=== PATIENT | male | born 1975 | race Caucasian/White ===

== ENCOUNTER 2017-05-22 19:24 | Inpatient (IN) | payer BC, OTHER ==
--- NOTE | 2017-05-22 19:54 | ED ---
General Adult HPI - General Source: patient, family, RN notes reviewed, old records reviewed Mode of arrival: ambulatory Limitations: no limitations <Jong Ugarte - Last Filed: 05/22/17 20:37> <Jessee Griffith - Last Filed: 05/23/17 00:00> - General Chief complaint: Psychiatric Symptoms Stated complaint: Mental Health Suicidal Time Seen by Provider: 05/22/17 19:34 - History of Present Illness Initial comments: This is a 41-year-old male here for evaluation of suicidal thoughts. Patient is recovering drug abuse alcohol abuse patient. Patient comes in with suicidal thoughts, hasn't hospital admission before for suicidal ideation. Patient denies any increased stressors, no drug or alcohol abuse (Jong Ugarte) - Related Data Home Medications Medication Instructions Recorded Confirmed No Known Home Medications [No 05/22/17 05/22/17 Known Home Medications] Allergies Allergy/AdvReac Type Severity Reaction Status Date / Time No Known Allergies Allergy Verified 05/22/17 19:30 Review of Systems ROS Other: All systems not noted in ROS Statement are negative. <Jong Ugarte - Last Filed: 05/22/17 20:37> ROS Other: All systems not noted in ROS Statement are negative. <Jessee Griffith - Last Filed: 05/23/17 00:00> ROS Statement: Those systems with pertinent positive or pertinent negative responses have been documented in the HPI. Past Medical History Past Medical History: No Reported History History of Any Multi-Drug Resistant Organisms: None Reported Past Surgical History: Orthopedic Surgery Additional Past Surgical History / Comment(s): Right hand surgery in 1998 from a lump forming from glass being under skin; Pt. worked at a [employer]. Past Anesthesia/Blood Transfusion Reactions: No Reported Reaction Past Psychological History: ADD/ADHD, Anxiety, Bipolar, Depression Smoking Status: Current every day smoker Past Alcohol Use History: None Reported Past Drug Use History: Marijuana <Jong Ugarte - Last Filed: 05/22/17 20:37> General Exam Limitations: no limitations General appearance: alert, in no apparent distress Head exam: Present: atraumatic, normocephalic, normal inspection Eye exam: Present: normal appearance, PERRL, EOMI. Absent: scleral icterus, conjunctival injection, periorbital swelling ENT exam: Present: normal exam, mucous membranes moist Neck exam: Present: normal inspection. Absent: tenderness, meningismus, lymphadenopathy Respiratory exam: Present: normal lung sounds bilaterally. Absent: respiratory distress, wheezes, rales, rhonchi, stridor Cardiovascular Exam: Present: regular rate, normal rhythm, normal heart sounds. Absent: systolic murmur, diastolic murmur, rubs, gallop, clicks GI/Abdominal exam: Present: soft, normal bowel sounds. Absent: distended, tenderness, guarding, rebound, rigid Extremities exam: Present: normal inspection, full ROM, normal capillary refill. Absent: tenderness, pedal edema, joint swelling, calf tenderness Back exam: Present: normal inspection Neurological exam: Present: alert, oriented X3, CN II-XII intact Psychiatric exam: Present: normal affect, normal mood Skin exam: Present: warm, dry, intact, normal color. Absent: rash <Jong Ugarte - Last Filed: 05/22/17 20:37> Course <Jong Ugarte - Last Filed: 05/22/17 20:37> <Jessee Griffith - Last Filed: 05/23/17 00:00> Vital Signs 05/22/17 19:26 Temperature 98.5 F Pulse Rate 72 Respiratory 18 Rate Blood Pressure 143/80 O2 Sat by Pulse 98 Oximetry - Reevaluation(s) Reevaluation #1: 05/22/17 20:37 Medically clear for psychiatric evaluation (Jong Ugarte) Medical Decision Making <Jong Ugarte - Last Filed: 05/22/17 20:37> <Jessee Griffith - Last Filed: 05/23/17 00:00> - Medical Decision Making The patient was evaluated by the psychiatric service will be admitted for inpatient treatment. I did fill out a clinical certification. (Jessee Griffith) Disposition <Jong Ugarte - Last Filed: 05/22/17 20:37> <Jessee Griffith - Last Filed: 05/23/17 00:00> Clinical Impression: Depression, Suicidal ideation Disposition: TRANSFER TO PSYCH HOSP/UNIT Condition: Stable
[2017-05-23] MEDS ORDERED: LORazepam 1 MG TAB PO PRN ×2 (00:36→12:40)
[2017-05-23] MEDS ORDERED: MAG HYDROX/AL HYDROX/SIMETH 30 ML CUP PO PRN (00:36)
[2017-05-23] MEDS ORDERED: ACETAMINOPHEN TAB 325 MG TAB PO PRN (00:36)
[2017-05-23] MEDS ORDERED: MAGNESIUM HYDROXIDE 2,400 MG/10 ML CUP PO PRN (00:36)
[2017-05-23] MEDS ORDERED: LORazepam 2 MG/ML SYRINGE IM PRN ×2 (00:37→12:40)
[2017-05-23] MEDS ORDERED: OLANZapine ODT 5 MG TAB PO PRN (00:39)
[2017-05-23 01:11] VITALS: BMI 19.6
[2017-05-23] MEDS ORDERED: ZIPRASIDONE 20 MG VIAL IM PRN ×2 (01:37→12:39)
[2017-05-23] MEDS ORDERED: WATER FOR INJECTION, STERILE 10 ML IV ONE (01:44)
[2017-05-23 09:08] LABS: Cholesterol 139 mg/dL (<200); HDL Cholesterol 63 mg/dL (40-60); Triglycerides 59 mg/dL (<150)
[2017-05-23] MEDS ORDERED: OLANZapine 5 MG TAB PO SCH (10:00)
[2017-05-23] MEDS: NICOTINE POLACRILEX 2 MG GUM BUCCAL PRN ×2 (12:46→16:45)
--- NOTE | 2017-05-23 13:22 | HP ---
DATE OF ADMISSION: 05/22/2017 PSYCHIATRIC ADMISSION NOTE DATE OF SERVICE: 05/23/2017 IDENTIFYING DATA: The patient is a 41-year-old male. He lives by himself. He was referred through the emergency room. CHIEF COMPLAINT: The patient had made statements that he was suicidal and had a plan of using his gun where he would tie a string to set off the trigger to kill himself. He has substance use issues. He was admitted on petition for involuntary hospitalization. HISTORY OF PRESENTING ILLNESS: The patient has had one prior psychiatric hospitalization at this facility on December 22, 2014. At that time, he was admitted due to a petition completed by his mother. He was not sleeping, constantly pacing, had mood fluctuations from anger to crying, was not eating, thinking people were out to get him. He had racing thoughts, increased energy, grandiose delusions and hallucinations. He was diagnosed with bipolar disorder. He had just been released from a psychiatric hospital in [place] 2 weeks prior to that admission. He stated he flushed his medicines down the toilet. Today, the patient reports that since that hospitalization he has not been on psychotropic medications. He apparently was on Abilify Maintena for some period of time, though he was vague about specifics. Over the last several years, he has not been under any mental health care. He does have a significant substance use history including alcohol. He stopped drinking altogether in 2010. He states that he has had his medical marijuana card for the last few years. He had renewed his card once, which goes for a two-year period of time. He elected on this past Saturday to stop smoking marijuana all together. He believed that it was not helping him in terms of managing his daily life and dealing with stress issues. He also had past abuse of Adderall that was prescribed to him. He started having visual hallucinations with that. He said that in his family growing up his father had alcohol problems and he did not want to continue in that direction himself. He has 2 children, ages 17 and 13 for whom he has joint custody. He says he wants to be a good father and support his children as one important motivator for stopping smoking marijuana. He has had increased irritability. Since he stopped smoking marijuana he says that he was very distressed over some issues relating to child support. He got support papers and realized he needed to find health insurance for his children that he was having trouble trying to manage between people who were contacting him for insurance plans. He believed that people were trying to scam him. He said he did not know which way to turn. He got increasingly distressed which ended up getting him into his situation of making statements about suicide. When I interviewed him today, he says he does not have an intention of hurting himself or killing himself. He acknowledges that he probably has irritability relating to stopping smoking marijuana. His sleep has been fairly good. He does note some paranoid thinking and questions motivations of others. He has fair energy. He denies any symptoms of thought disorder. There is some suggestion he may have some PTSD symptoms from childhood issues, though he does not clearly identify specific abuse situations. He does note that he can over reactions to things where he does not know where the feelings come from. He has some anxiety that does not clearly identify panic symptoms. It is noted that in 2014 when the patient was admitted, there were likely significant substance use issues whether he has underlying bipolar disorder remains to be seen. It is noteworthy that when I reviewed with the patient how he had been functioning over the last few months prior to his current situation, he noted that he maintained a good mood. He did not have significant anxiety or panic symptoms. He was not having problems with over suspiciousness or paranoia. On the other hand, in a social work contact with the patient's mother, she indicated he has been having problems perhaps over the last several months, at least. She was concerned that after his 2014 admission, he stopped taking his prescribed medications and declined in his function. She suggested that symptoms of paranoid thinking became fairly prominent. It is noted that after my initial; interview with the patient, when he was offered the medication ordered, he became quite reluctant to accept. He wanted to see the wrapper it came in. He questioned the indication, and suggested that people here were threatening him in various ways, including around the idea of taking medications. He is admitted for further evaluation. SUBSTANCE USE HISTORY: As above. PAST MEDICAL HISTORY: Patient denies any current or chronic general health complaints. REVIEW OF SYSTEMS: Unremarkable. Further medical history and review of systems as per medical consultation. FAMILY AND SOCIAL HISTORY: The patient lives on his own. He has split custody of his 2 children, and has them every other week. 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 MENTAL STATUS EXAM: Patient was casually dressed and cooperative. Eye contact was good. Psychomotor activity a little restless. Speech was clear. He answered questions with appropriate responses. He was spontaneous and interactive. His affect was blunted. He had a withdrawn manner. His mood depressed. He was cooperative. He was somewhat anxious, though he was thoughtful and offered some good insights. He did not appear to be significantly distressed, initially. Further contact with the patient revealed him to be quite paranoid, believing people were watching him and threatening him in various ways. He made comments that when he is in the store and sees names on Coke bottles, he believes there are messages about things in his past life. He presented in a quite suspicious, apprehensive way. On cognitive exam, he was oriented x3 and alert. Recent and remote memory was intact. Attention and concentration were fair. He remembered 2 out of 3 objects in 4 minutes. He could spell world forward and backwards. He had adequate calculations. Attention and focus were good. Insight was good. Judgment generally appropriate. Fund of knowledge average. Intellectual level average. PHYSICAL EXAM: As per medical consultation. DIAGNOSTIC STUDIES: CBC was remarkable for a hemoglobin of 13.0 with an MCV of 103. Comprehensive metabolic profile was remarkable for total protein of 5.9. Creatinine 1.23. Glucose 87. Lipid levels normal. TSH 1.9. Urinalysis unremarkable. Urine drug screen positive for THC. ASSESSMENT: This 41-year-old male is diagnosed with substance withdrawal from marijuana. It is not clear that he has an ongoing psychiatric disorder. Beyond that, he was doing well up until just this week. He was not having issues with anxiety, depression or thought disorder whether or not withdrawal resolves without persistence of any mood or anxiety condition remains to be seen though at this point that would be the focus of treatment. He does appear to have long-term family dynamic and emotional issues that probably play into possible posttraumatic stress disorder condition. Strengths include that he is consistent in his work, that he has motivation for stabilizing his life situation and that he appears to be a good support for his children. Weakness includes some limited insight in regards to substance use issues even though he seems to have made a step forward in that regard. DIAGNOSES: 1. Marijuana dependence with active withdrawal. 2. Posttraumatic stress disorder. 3. Possible bipolar affective disorder, possibly drug induced. RECOMMENDATIONS: Patient will be admitted for comprehensive medical, psychiatric and psychosocial evaluation. We will make efforts to engage the patient in individual and group therapeutic activities. I will start the patient on Zyprexa 5 mg twice a day. The aim of Zyprexa is to help reduce physiologic stress response as it relates to substance withdrawal. He has had some benefit in the past from long-acting injectable, though at that time he also was actively using some abusive substances. The specifics of that are unclear. We will help the patient work on planning some discharge issues, which includes sorting out some important family business including health insurance. Patient would be a good candidate for outpatient psychotherapy. We will focus on stabilization and discharge planning. SIDNEY
--- NOTE | 2017-05-23 15:11 | P.CONS ---
History of Present Illness - Reason for Consult Consult date: 05/23/17 - History of Present Illness This is a 41-year-old male who presented to the emergency department with suicidal thoughts. He has a history of severe depression, bipolar, ADD, GERD, and substance use. He does have a history of being institutionalized for mental health issues in the past. Patient reports he was on Abilify for his bipolar disorder in the past but had stopped due to a mixup at [facility] where he was receiving treatment for his bipolar disorder. Patient reports he recently stopped smoking marijuana and feels this is why he was having suicidal ideation. Patient reports he was having suicidal thoughts last night but none currently. He states he has not had any alcohol since November 2011 and denies any other substance abuse. Patient does work at a [employer] , has 2 children and is . Review of Systems Constitutional: Denies anorexia, Denies chills, Denies fatigue, Denies fever Eyes: bilateral blurred vision, bilateral irritation, bilateral pain Ears: deny: decreased hearing, tinnitus Ears, nose, mouth and throat: Denies headache, Denies hoarseness, Denies nasal congestion, Denies nose pain Cardiovascular: Denies chest pain, Denies dyspnea on exertion, Denies edema, Denies lightheadedness, Denies palpitations, Denies rapid heart beat, Denies shortness of breath, Denies syncope Respiratory: Denies cough, Denies pain, Denies wheezing Gastrointestinal: Denies abdominal pain, Denies constipation, Denies indigestion , Denies nausea, Denies vomiting Genitourinary: Denies flank pain, Denies hematuria, Denies incontinence, Denies urinary frequency Musculoskeletal: Denies limitation of motion, Denies morning stiffness, Denies muscle cramps, Denies muscle weakness, Denies neck pain Musculoskeletal: absent: ankle pain, ankle stiffness, hip pain, knee pain, shoulder pain, wrist pain Integumentary: Denies color changes, Denies darkening of skin, Denies lesions, Denies wounds Neurological: Denies change in speech, Denies confusion, Denies gait dysfunction , Denies head injury, Denies headaches, Denies lack of coordination, Denies numbness, Denies seizures, Denies sensory deficit, Denies syncope Psychiatric: Reports anxiety, Reports anxiety attacks, Reports change in sleep habits, Reports depression, Reports difficulty concentrating, Reports irritability, Reports mood swings, Denies change in appetite, Denies hallucinations, Denies memory loss, Denies paranoia, Denies suicidal ideation Endocrine: Denies cold intolerance, Denies fatigue, Denies nocturia, Denies weight change Hematologic/Lymphatic: Denies easy bleeding, Denies lymphadenopathy, Denies lymphedema Allergic/Immunologic: Denies allergic rhinitis, Denies angioedema, Denies wheezing Past Medical History Past Medical History: No Reported History History of Any Multi-Drug Resistant Organisms: None Reported Past Surgical History: Orthopedic Surgery Additional Past Surgical History / Comment(s): Right hand surgery in 1998 from a lump forming from glass being under skin; Pt. worked at a [employer]. Past Anesthesia/Blood Transfusion Reactions: No Reported Reaction Smoking Status: Current every day smoker - Past Family History Mother History Unknown: Yes Additional Family Medical History / Comment(s): Mother is on medication for depression Medications and Allergies Home Medications Medication Instructions Recorded Confirmed Type No Known Home Medications [No 05/22/17 05/22/17 History Known Home Medications] Allergies Allergy/AdvReac Type Severity Reaction Status Date / Time No Known Allergies Allergy Verified 05/22/17 19:30 Physical Exam Vitals: Vital Signs Temp Pulse Pulse Resp BP BP Pulse Ox 05/23/17 02:41 97.8 F 66 16 148/84 05/23/17 01:02 97.8 F 66 16 148/84 99 05/23/17 00:34 98 F 69 18 139/91 99 05/22/17 19:26 98.5 F 72 18 143/80 98 Intake and Output 05/22/17 05/23/17 05/23/17 22:59 06:59 14:59 Other: Weight 60.328 kg 56.9 kg - Constitutional General appearance: cooperative, no acute distress - EENT Eyes: PERRLA ENT: hearing grossly normal Ears: bilateral: normal - Neck Neck: no lymphadenopathy, normal ROM, no thyromegaly Carotids: bilateral: upstroke normal, bruit absent Thyroid: bilateral: normal size, negative: enlarged, nodule - Respiratory Respiratory: bilateral: CTA, negative: dullness, rhonchi, wheezing - Cardiovascular Rhythm: regular Heart sounds: normal: S1, S2 Abnormal Heart Sounds: no systolic murmur, no S3 Gallop, no S4 Gallop - Gastrointestinal General gastrointestinal: no distended, normal bowel sounds, no organomegaly, soft, no splenomegaly, no tenderness - Integumentary Integumentary: normal, no rash - Neurologic Neurologic: CNII-XII intact - Musculoskeletal Musculoskeletal: gait normal, no generalized weakness, strength equal bilaterally - Psychiatric Psychiatric: A&O x's 3, appropriate affect Results Labs: Abnormal Lab Results - Last 24 Hours (Table) 05/22/17 05/23/17 Range/Units 23:59 08:30 HDL Cholesterol 63 H (40-60) mg/dL U Marijuana (THC) Screen Detected H (NotDetected) Assessment and Plan Plan: 1 bipolar disorder and severe depression: Patient admitted to the psych unit medication and counseling will be done. 2 anxiety: Has been on medical management. 3 GERD: We'll continue to monitor. Maalox as needed. 4 substance-abuse: Patient to be seen by psych service 5 ADD: Patient currently not on any home medications, continue to monitor 6 tobacco use: Nicotine replacement ordered. The above impression and plan of care have been discussed and directed by signing physician. Kendra Meyers nurse practitioner acting as scribe for signing physician.
[2017-05-23] MEDS ORDERED: diphenhydrAMINE 50 MG/ML 1 ML VIAL IM PRN (15:29)
[2017-05-24] MEDS: NICOTINE POLACRILEX 2 MG GUM BUCCAL PRN ×2 (08:23→10:59)
[2017-05-24] MEDS ORDERED: ARIPiprazole 15 MG TAB PO SCH (09:00)
[2017-05-24 09:28] LABS: Basophils % (A) 0 %; CHCM 33.7; Eosinophils % (A) 0 %; HCT 50.4 % (39.0-53.0); HDW 1.92; HGB 16.3 gm/dL (13.0-17.5); Luc # (Auto) 0.14; Luc % (Auto) 1; Lymphocytes # (A) 2.2 k/uL (1.0-4.8); Lymphocytes % (A) 17 %; MCH 33.7 pg (25.0-35.0); MCHC 32.4 g/dL (31.0-37.0); MCV 104.3 fL (80.0-100.0); Macrocytosis Slight; Mean Platelet Volume 8.1; Monocytes # (A) 0.5 k/uL (0-1.0); Monocytes % (A) 4 %; Neutrophils # (A) 10.2 k/uL (1.3-7.7); Neutrophils % (A) 78 %; RBC 4.84 m/uL (4.30-5.90); RDW 12.3 % (11.5-15.5); WBC 13.1 k/uL (3.8-10.6); WBC (Perox) 12.46
[2017-05-24 10:21] LABS: ALT 39 U/L (21-72); AST 31 U/L (17-59); Alkaline Phosphatase 67 U/L (38-126); Anion Gap 13 mmol/L; Blood Urea Nitrogen 14 mg/dL (9-20); Calcium 9.9 mg/dL (8.4-10.2); Carbon Dioxide 26 mmol/L (22-30); Chloride 103 mmol/L (98-107); Glucose 131 mg/dL (74-99); Non-African American GFR(MDRD) >60 (>60 ml/min/1.73 sqM); Potassium 4.2 mmol/L (3.5-5.1); Sodium 142 mmol/L (137-145); Total Bilirubin 0.8 mg/dL (0.2-1.3); Total Protein 6.8 g/dL (6.3-8.2)
--- NOTE | 2017-05-24 16:27 | PN ---
DATE OF SERVICE: 05/24/2017 CHIEF COMPLAINT: The patient had made statements that he was suicidal and had a plan of using his gun where he would tie a string to set off the trigger to kill himself. He had substance use issues. He was admitted on petition for involuntary hospitalization. INTERVAL HISTORY: Patient has been doing fair. He seems to be showing some progress. He had a quiet evening last night. He slept fairly well. He has been up and about today. He attends groups. He seems to do fairly well in the groups though he acknowledges it is difficult for him to open up and share in that setting. He says he has tried to address some of his issues including past problems. He has had with substance abuse. He declined to take Zyprexa, though has been comfortable with starting Abilify. He has had no problems with the initial dose Abilify. Unfortunately he does not have insurance that will cover medications. He will not be able to afford the Abilify. We discussed this issue and he is willing to get started on an alternative. He seems to be doing a little bit better with less apprehension and suspiciousness. He has been cooperative. He seems to be doing a little better in his mood. He has been talking a little bit more. He has not had change in his general health. He tolerates his psychotropic medications. MENTAL STATUS: Patient gave good eye contact. Psychomotor activity was a little slow. Speech was somewhat monotone. He answered questions with direct responses. His affect was a little blunted. His mood quiet. He did not appear to be significantly distressed. ASSESSMENT: I will continue the current diagnosis and treatment plan. I will switch the patient from Abilify to Risperdal. I will start 6 mg a day. We will continue to focus on stabilization and discharge planning. I discussed with the patient that we would look to discharge him early in the week. SIDNEY
[2017-05-24] MEDS ORDERED: risperiDONE 2 MG TAB PO ONE (18:19)
[2017-05-24] MEDS: risperiDONE 2 MG TAB PO SCH (18:25)
--- NOTE | 2017-05-25 08:57 | P.PN ---
Progress Note - Text Interval history: The patient is found in the hallway he follows me to an interview room. The psychiatric evaluation and progress note were reviewed. The patient was started on Risperdal 6 mg at bedtime last evening. The patient states that he feels the medicine" coming on". He has no specific complaints about it at this point. He was going to be started on Abilify but that was not utilized due to coverage issues. The patient states that he slept last night appetite was better this morning. He is making an effort to attend groups. He is hoping the medication will help stabilize him. He reports future oriented thinking in terms of goals he needs to accomplish upon discharge. Mental status exam: The patient is a thin male appearing older than his stated age. He has a disheveled appearance he is dressed in his own clothing. Eye contact is appropriate he's pleasant cooperative. He maintains a bland affect. He reports his mood is "okay". He is reporting no acute suicidal or homicidal ideation intent or plan. Thought process was relatively linear he can be circumstantial at times. He was not tangential and demonstrated no loose associations or flight of ideas. He demonstrates no verbal or physical aggressiveness. No abnormal involuntary movements observed. Insight and judgment improving. He is oriented to person place and date. He is endorsing no auditory or visual hallucinations he is endorsing no specific delusions. Plan: The patient will continue on his current medication we will monitor for side effects. Vital signs reviewed. He is encouraged to continue participating in the milieu. We will monitor him for safety.
[2017-05-25] MEDS: NICOTINE POLACRILEX 2 MG GUM BUCCAL PRN ×2 (10:57→18:09)
[2017-05-25] MEDS: risperiDONE 2 MG TAB PO SCH (20:16)
[2017-05-26] MEDS: NICOTINE POLACRILEX 2 MG GUM BUCCAL PRN (08:21)
--- NOTE | 2017-05-26 09:08 | P.PN ---
Progress Note - Text Interval history: The patient is found in the hallway he follows me to an interview room. He reports that his mood is "okay". He feels that he is slowly adjusting to the Risperdal. Yesterday he states he had a bit of a heavy feeling and he notes that today his heart rate is quite high. He is endorsing no dystonic reactions no blurred vision no double vision no jaw stiffness etc. He has been participating in the [employer] He has been eating. He feels overall things are beginning to stabilize. We discussed the Risperdal and his current dose and discussed reducing the dose to minimize risk of side effects. Mental status exam: The patient is a thin disheveled male he seated calmly he's pleasant cooperative he maintains a bland affect. He reports his mood is "okay". He is reporting no hopelessness thinking no suicidal or homicidal ideation intent or plan. He reports no auditory or visual hallucinations he is endorsing no specific delusions as we reviewed several types. He does not appear hypomanic or manic. He continues to be oriented to person place and date. No abnormal involuntary movements observed. He is able to sit calmly in the chair for the duration of the session. He demonstrates no verbal or physical aggressiveness. Thought process remains linear he demonstrates no tangential thinking loose associations or flight of ideas. Plan: The patient will continue on the Risperdal we will reduce the dose to 4 mg at bedtime. We will monitor her vitals specifically heart rate. He is encouraged to continue participating in the [employer] we will monitor him for safety. He is interested in going on an injectable form of the medication we will need to see if this is covered by his insurance or outpatient provider. We will repeat another set of vitals.
[2017-05-26] MEDS: risperiDONE 2 MG TAB PO SCH (20:16)
[2017-05-27] MEDS: NICOTINE POLACRILEX 2 MG GUM BUCCAL PRN (12:13)
[2017-05-27] MEDS: risperiDONE 2 MG TAB PO SCH (20:30)
--- NOTE | 2017-05-27 22:55 | PN ---
DATE OF SERVICE: 05/27/2017 CHIEF COMPLAINT: The patient had made statements that he was suicidal and had a plan of using his gun where he would tie a string to set off the trigger to kill himself. He had substance use issues. He was admitted on petition for involuntary hospitalization. INTERVAL HISTORY: Patient has been doing fairly well overall. He said that he did well through the weekend. It is noted that Saturday evening his mother called around 6:30, stating that the patient had called her and made a statement that he was going to , that his would be on Saturday. The patient himself denied having made these statements and said he was doing fairly well. Apparently the mother visited over the weekend and also said that in her assessment, that he was continuing to be quite paranoid and also that he had stated he was hiding his medication under his denture and then throwing the medication away. The patient has been attending groups. He has been appropriate in groups. He was able to talk about his addiction and the impact of his substance use on family functioning. He also was able to talk about issues of his poor self-esteem. He has shown some paranoid thinking where he wonders what other people are thinking about him and what they are saying about him, though he does respond to staff reassurance. He was able to share those feelings with staff. He acknowledges that some of his paranoid feelings have been lessening since he has been on the medication. He apparently had some complaint of nausea over the weekend and his Risperdal was reduced from 6 mg a day to 4 mg a day without difficulty. He has not had other change in his general health. He tolerates his psychotropic medications. MENTAL STATUS: Patient gave good eye contact. Psychomotor activity was a little restless. His speech was clear. He was spontaneous and interactive. His affect was a little constricted. His mood was quiet. He did not appear to be significantly distressed. ASSESSMENT: I will continue the current diagnosis and treatment plan. I will continue psychotropic medications the same. It is noted that the patient clarified that the only time that he cheeked his medication was the first doses though of Zyprexa that he received. He noted that he acknowledged that right away. He feels that his current medication is helping. His mood seems to be improving. He has a better outlook. He seems to have some good insight about his situation. We will continue to focus on stabilization and discharge planning.
[2017-05-28 06:38] VITALS: BP 125/83; PULSE 89; RESP 16; TEMP 97.8
[2017-05-28] MEDS: NICOTINE POLACRILEX 2 MG GUM BUCCAL PRN (10:45)
== END 2017-05-28 12:12 | disposition home or self-care (01) | DRG 897 ==
LOC: EC 19:24 → 3MHU 23:57
PROVIDERS: ADMIT Psychiatry & Neurology Psychiatry; ATTEND Psychiatry & Neurology Psychiatry
DX: F12.288 Cannabis dependence with other cannabis-induced disorder (principal); R45.851 Suicidal ideations; F17.200 Nicotine dependence, unspecified, uncomplicated; F43.10 Post-traumatic stress disorder, unspecified; F90.9 Attention-deficit hyperactivity disorder, unspecified type; K21.9 Gastro-esophageal reflux disease without esophagitis; Z81.8 Family history of other mental and behavioral disorders
CPT/HCPCS: 80053; 80061; 80306; 82075; 82306; 84443; 85025; 99285

== ENCOUNTER 2020-11-29 09:10 | Inpatient (IN) | payer MEDICAID, OTHER ==
--- NOTE | 2020-11-29 10:05 | ED ---
General Adult HPI - General Chief complaint: Psychiatric Symptoms Stated complaint: change in mental status Time Seen by Provider: 11/29/20 09:19 Source: patient, family, RN notes reviewed, old records reviewed Mode of arrival: ambulatory Limitations: no limitations - History of Present Illness Initial comments: 45-year-old male presenting for mental health evaluation. Patient was previously seen by [facility] mental health and was on injectable medication. Secondary to insurance reasons he's been off his medication. He's been paranoid bleeding at sabotage him. He denies suicidal or homicidal ideation. He is accompanied by his father. No physical complaints. - Related Data Home Medications Medication Instructions Recorded Confirmed No Known Home Medications 11/29/20 11/29/20 Allergies Allergy/AdvReac Type Severity Reaction Status Date / Time No Known Allergies Allergy Verified 11/29/20 09:50 Review of Systems ROS Statement: Those systems with pertinent positive or pertinent negative responses have been documented in the HPI. ROS Other: All systems not noted in ROS Statement are negative. Past Medical History Past Medical History: No Reported History History of Any Multi-Drug Resistant Organisms: None Reported Past Surgical History: Orthopedic Surgery Additional Past Surgical History / Comment(s): Right hand surgery in 1998 from a lump forming from glass being under skin; Pt. worked at a [employer]. Past Anesthesia/Blood Transfusion Reactions: No Reported Reaction Past Psychological History: ADD/ADHD, Anxiety, Bipolar, Depression Smoking Status: Current every day smoker Past Alcohol Use History: None Reported Past Drug Use History: Marijuana - Past Family History Mother History Unknown: Yes Additional Family Medical History / Comment(s): Mother is on medication for depression General Exam Limitations: no limitations General appearance: alert, in no apparent distress Head exam: Present: atraumatic, normocephalic Eye exam: Present: normal appearance, PERRL ENT exam: Present: normal exam Neck exam: Present: normal inspection. Absent: tenderness, meningismus Respiratory exam: Present: normal lung sounds bilaterally. Absent: respiratory distress, wheezes Cardiovascular Exam: Present: regular rate, normal rhythm GI/Abdominal exam: Present: soft. Absent: distended, tenderness Neurological exam: Present: alert, oriented X3, CN II-XII intact. Absent: motor sensory deficit Psychiatric exam: Present: flat affect. Absent: suicidal ideation Skin exam: Present: warm, dry, intact. Absent: cyanosis, diaphoretic Course Vital Signs 11/29/20 09:13 Temperature 98.8 F Pulse Rate 86 Respiratory 18 Rate Blood Pressure 170/96 O2 Sat by Pulse 99 Oximetry Medical Decision Making - Medical Decision Making Patient has been evaluated by EPS, and felt to require inpatient psychiatric evaluation and treatment. He will be admitted to this institution. - Lab Data Lab Results 11/29/20 Range/Units 09:53 Urine Opiates Screen Not Detected (NotDetected) Ur Oxycodone Screen Not Detected (NotDetected) Urine Methadone Screen Not Detected (NotDetected) Ur Propoxyphene Screen Not Detected (NotDetected) Ur Barbiturates Screen Not Detected (NotDetected) U Tricyclic Antidepress Not Detected (NotDetected) Ur Phencyclidine Scrn Not Detected (NotDetected) Ur Amphetamines Screen Not Detected (NotDetected) U Methamphetamines Scrn Not Detected (NotDetected) U Benzodiazepines Scrn Not Detected (NotDetected) Urine Cocaine Screen Not Detected (NotDetected) U Marijuana (THC) Screen Detected H (NotDetected) Disposition Clinical Impression: Depression, Bipolar disorder, Delusional disorder Disposition: ADMITTED IP TO THIS [facility] Condition: Stable Is patient prescribed a controlled substance at d/c from ED?: No Referrals: None,Stated [Primary Care Provider] - 1-2 days Decision to Admit Reason: Admit from EC Decision Date: 11/29/20 Decision Time: 13:43
[2020-11-29 10:29] LABS: Amphetamine Screen,Urine Not Detected (NotDetected); Barbiturate Screen,Urine Not Detected (NotDetected); Benzodiazepines Screen,Urine Not Detected (NotDetected); Cocaine Screen,Urine Not Detected (NotDetected); Methadone Screen, Urine Not Detected (NotDetected); Opiate Screen,Urine Not Detected (NotDetected); Oxycodone Screen, Urine Not Detected (NotDetected); Phencyclidine Screen,Urine Not Detected (NotDetected); Tricyclic Antidepressant,Urine Not Detected (NotDetected); Urn Cannabinoid Scrn Detected (NotDetected)
[2020-11-29] MEDS ORDERED: LORazepam 1 MG TAB PO STA (14:19)
[2020-11-29] MEDS ORDERED: MAG HYDROX/AL HYDROX/SIMETH 30 ML CUP PO PRN (15:30)
[2020-11-29] MEDS ORDERED: LORazepam 1 MG TAB PO PRN (15:30)
[2020-11-29] MEDS ORDERED: ACETAMINOPHEN TAB 325 MG TAB PO PRN (15:30)
[2020-11-29] MEDS ORDERED: MAGNESIUM HYDROXIDE 2,400 MG/10 ML CUP PO PRN (15:30)
[2020-11-29] MEDS ORDERED: haloperidoL 5 MG TAB PO PRN (15:34)
[2020-11-29] MEDS ORDERED: LORazepam 2 MG/ML INJ IM PRN (15:34)
[2020-11-29] MEDS ORDERED: HALOPERIDOL LACTATE 5 MG/ML 1 ML VIAL IM PRN (15:34)
[2020-11-29 16:30] VITALS: RESP 16
[2020-11-29 17:29] LABS: Amorphous Sediment,Urine Occasional /hpf; Appearance,Urine Turbid (Clear); Bacteria,Urine Few /hpf; Bilirubin,Urine Negative (Negative); Blood,Urine Negative (Negative); Color,Urine Light Brown; Glucose,Urine (UA) Negative (Negative); Ketones,Urine Trace (Negative); Leukocyte Esterase,Urine Negative (Negative); Mucus,Urine Few /hpf; Nitrite,Urine Negative (Negative); PH, Urine 5.5 (5.0-8.0); Protein,Urine Trace (Negative)
[2020-11-29] MEDS: NICOTINE 14MG/24HR PATCH TRANSDERM SCH (19:05)
--- NOTE | 2020-11-30 00:34 | P.MDCNMH ---
History of Present Illness H&P Date: 11/29/20 Chief Complaint: medical evaluation 45 year old malel with paranoid delusion, medical non compliance patient comes in for mental health evaluation due to paranoid delusions, he has been non compliant with his medication, denies any suicidal or homicidal ideation. patient denies any fever, chills, nausea , vomiting, URI symptoms, GI symptoms, urnary changes. patient admits to smoking cigarettes and marijuana , but denies any heavy alcohol use Review of Systems Pertinent positives as noted in HPI. All other systems were reviewed and are negative Past Medical History Past Medical History: No Reported History History of Any Multi-Drug Resistant Organisms: None Reported Past Surgical History: Orthopedic Surgery Additional Past Surgical History / Comment(s): Right hand surgery in 1998 from a lump forming from glass being under skin; Pt. worked at a [employer]. Past Anesthesia/Blood Transfusion Reactions: No Reported Reaction Past Psychological History: ADD/ADHD, Anxiety, Bipolar, Depression Smoking Status: Current every day smoker Past Alcohol Use History: None Reported Additional Past Alcohol Use History / Comment(s): Patient states hasnt drank alcohol in 6 years Past Drug Use History: Marijuana Additional Drug Use History / Comment(s): Pt. has a medical marijuana card. Hx. of using cocaine and LSD 8yrs. ago. - Past Family History Mother History Unknown: Yes Additional Family Medical History / Comment(s): Mother is on medication for depression Medications and Allergies Home Medications Medication Instructions Recorded Confirmed Type No Known Home Medications 11/29/20 11/29/20 History Allergies Allergy/AdvReac Type Severity Reaction Status Date / Time bee venom protein (honey bee) AdvReac Itching Verified 11/29/20 16:34 Physical Exam Vitals: Vital Signs Temp Pulse Pulse Resp BP BP Pulse Ox 11/29/20 16:21 98.4 F 76 16 161/99 97 11/29/20 15:40 98.4 F 76 16 161/99 11/29/20 14:00 98.2 F 91 18 162/98 95 11/29/20 09:13 98.8 F 86 18 170/96 99 Intake and Output 11/29/20 11/29/20 11/30/20 14:59 22:59 06:59 Other: Weight 61.235 kg 59.4 kg Constitutional: No acute distress, conversant, pleasant Eyes: Anicteric sclerae, moist conjunctiva, Pupils equal round reactive to light ENMT: NC/AT Oropharynx clear, no erythema, or exudates Neck: Supple, FROM, no masses, or JVD No carotid bruits No thyromegaly Lungs: Clear to auscultation Clear to percussion Normal respiratory effort, no accessory muscle use Cardiovascular: Heart regular in rate and rhythm, No murmurs, gallops, or rubs No peripheral edema Abdominal: Soft Nontender, no guarding, rebound or rigidity Abdomen moving with respiration Normoactive bowel sounds No hepatomegaly, No splenomegaly No palpable mass No abdominal wall hernia noted Skin: Normal temperature, tone, texture, turgor No induration No subcutaneous nodules No rash, lesions No ulcers Extremities: No digital cyanosis No clubbing Pedal pulses intact and symmetrical Radial pulses intact and symmetrical No calf tenderness Psychiatric: Alert and oriented to person, place and time Neuro Muscles Strength 5/5 in all 4 extremities Sensation to light touch grossly present throughout Cranial nerves II-XII grossly intact No focal sensory deficits Lymphatics: no palpable cervical or supraclavicular , or inguinal lymph nodes Cranial Nerve Examination - Cranial Nerves Cranial Nerve II- Optic: Intact Cranial Nerve III- Oculomotor: Intact Cranial Nerve IV- Trochlear: Intact Cranial Nerve V- Trigeminal: Intact Cranial Nerve - Abducens: Intact Cranial Nerve VII- Facial: Intact Cranial Nerve VIII- Auditory: Intact Cranial Nerve IX- Glossopharyngeal: Intact Cranial Nerve X- Vagus: Intact Cranial Nerve XI- Accessory: Intact Cranial Nerve XII- Hypoglossal: Intact Results Labs: Abnormal Lab Results - Last 24 Hours (Table) 11/29/20 11/29/20 Range/Units 09:30 09:53 Urine Protein Trace H (Negative) Urine Ketones Trace H (Negative) Amorphous Sediment Occasional H (None) /hpf Urine Bacteria Few H (None) /hpf Urine Mucus Few H (None) /hpf U Marijuana (THC) Screen Detected H (NotDetected) Assessment and Plan Assessment: paranoid delusions medical non compliance management per psych tobacco smoking nicotine replacement therapy follow up labs Thank you for allowing us to participate in the care of this patient. We will follow peripherally. Do not hesitate to contact us with questions. Someone can be reached from the [facility] hospitalist group at all hours of the day at [phone].
[2020-11-30 08:54] LABS: Basophils % (A) 0 %; Eosinophils # (A) 0.1 k/uL (0-0.7); Eosinophils % (A) 1 %; HCT 51.6 % (39.0-53.0); HGB 16.8 gm/dL (13.0-17.5); Lymphocytes # (A) 2.7 k/uL (1.0-4.8); Lymphocytes % (A) 29 %; MCH 33.4 pg (25.0-35.0); MCHC 32.6 g/dL (31.0-37.0); MCV 102.5 fL (80.0-100.0); Macrocytosis Slight; Mean Platelet Volume 8.1; Monocytes # (A) 0.6 k/uL (0-1.0); Monocytes % (A) 7 %; Neutrophils # (A) 5.6 k/uL (1.3-7.7); Neutrophils % (A) 61 %; Platelet Count 225 k/uL (150-450); RBC 5.03 m/uL (4.30-5.90); RDW 12.4 % (11.5-15.5); WBC 9.1 k/uL (3.8-10.6)
[2020-11-30 09:00] LABS: ALT 15 U/L (4-49); AST 29 U/L (17-59); African American GFR (CKD) >90 (>60 ml/min/1.73 sqM); Albumin 4.5 g/dL (3.5-5.0); Alkaline Phosphatase 63 U/L (38-126); Anion Gap 6 mmol/L; Blood Urea Nitrogen 13 mg/dL (9-20); Calcium 9.7 mg/dL (8.4-10.2); Carbon Dioxide 27 mmol/L (22-30); Chloride 104 mmol/L (98-107); Cholesterol 147 mg/dL (<200); Glucose 148 mg/dL (74-99); HDL Cholesterol 58 mg/dL (40-60); LDL Cholesterol,Calculated 76 mg/dL (0-99); Non-African American GFR(CKD) >90 (>60 ml/min/1.73 sqM); Potassium 4.2 mmol/L (3.5-5.1); Sodium 137 mmol/L (137-145); Total Bilirubin 1.4 mg/dL (0.2-1.3); Total Protein 7.2 g/dL (6.3-8.2); Triglycerides 64 mg/dL (<150)
[2020-11-30] MEDS ORDERED: ARIPiprazole 10 MG TAB PO SCH (09:00)
[2020-11-30] MEDS: NICOTINE 14MG/24HR PATCH TRANSDERM SCH (09:10)
[2020-11-30] MEDS: ARIPiprazole 5 MG TAB PO SCH (09:11)
[2020-11-30] MEDS: NICOTINE POLACRILEX 2 MG GUM BUCCAL PRN (10:01)
--- NOTE | 2020-11-30 11:26 | P.HP ---
Psychiatric H&P - . H&P Date: 11/30/20 History & Physical: IDENTIFYING DATA: His 45-year-old male admitted to psychiatric unit voluntarily with recent history of increasing paranoia, insomnia, irritability and restlessness. HISTORY OF PRESENT ILLNESS: I reviewed the medical record, interviewed the patient and spoke with his live-in girlfriend Nida. He was initially reluctant to speak with me insisting that I call his girlfriend and have her present on the telephone during the interview. He was apprehensive but eventually agreed to speak with me privately before he called his girlfriend. He requested to "get back on" Abilify injections. He stated that when he was receiving the injection he was doing well. He alleged that he stopped injections because his insurance would not cover the cost. He had a difficult time explaining the concerns that brought him to the hospital. Apparently, the hospitalization was at the behest of his father and his girlfriend. He talked about being suspicious of people, having restless sleep, feeling anxious and having a more difficult time controlling his anger. He perseverated considerably about his current job. He is worried that if she does not receive some treatment he may lose the job that is held for 2 years. He also is concerned that if he were hired full-time (he's been working for [employer] for the last 2 years) he would be required to provide a urine sample for another drug test and may fail because he continues to smoke marijuana. His girlfriend, Nida, was concerned about his restlessness, irritability and paranoia. She complained that that he has difficult time controlling his anger. He cannot sleep and paces the house. She talked about him leaving strangers are looking at him and talking about him. She perseverated on him needing "something for anxiety." During the telephone portion of interview he revealed that in the past he had taken and possibly abused Adderall. His history of use difficult to clarify but that appeared to attend when he was last admitted to this unit. (There is no record of controlled substance prescriptions on [facility]) He denied persistent feelings depression or thoughts of or suicide. He described feeling tense and nervous and apprehensive as a result his concern over work and his relationship with his girlfriend. He denied experiencing panic attacks. He denied obsessions or compulsions. He alleges that he has been abstinent from alcohol since 2010. He only smokes marijuana. His UDS was positive only for cannabinoids. His girlfriend described what appears to be ideas reference where he feels that others are looking at him and talking about him. He denied experiencing thought insertion, thought broadcasting or thought control. He did not describe a paranoid belief. PAST PSYCHIATRIC HISTORY: This is his third admission to this facility; the last was in 2017. He acknowledged that he did not continue with treatment after he was last discharged. He talked about "paranoid" other medications that were prescribed to him. PAST MEDICAL HISTORY: Medical consult appreciated ALLERGIES: NO KNOWN DRUG ALLERGIES SUBSTANCE USE HISTORY: He has history of an alcohol use disorder including 4 DUIs. His last DUI was in 2010. 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 He smokes marijuana. He denied use of other drugs. FAMILY PSYCHIATRIC/SUBSTANCE USE HISTORY: His mother has a history of depression. LEGAL HISTORY: He is not on probation, parole or is pending charges. He has had 4 DUIs. He has been incarcerated but not imprisoned. SOCIAL HISTORY: He was born and raised in [place]. He is and has 2 children. He graduated from high school. He is employed through a [employer] agency and works for a local company in [place]. He currently lives in [place] with his girlfriend Nida. MENTAL STATUS EXAM: He has presented as a thin middle-aged male who was guarded and suspicious. He made eye contact and attended the interview. He had no distinguishing features or prominent physical abnormalities. He wasn't anxious facial expression. He was alert and oriented to person, place and time. He was restless but able to remain seated during the interview. He had no abnormal involuntary movements. Her speech was spontaneous with normal rate and rhythm. He had no articulation difficulties. His affect was anxious, suspicious and guarded. He denied suicidal ideation and wishes and homicidal ideation. He did not express feelings of hopelessness, helplessness or worthlessness. He ruminated about his relationship and work. He express ideas reference, paranoid ideation but no clear delusional thoughts. His thinking was concrete. Associations were coherent, logical and goal directed. He denied hallucinations and did not appear to be responding to internal stimuli. Global impression of intellect is average. He is aware of his illness need for treatment. STRENGTHS: Stable housing, stable income, supportive relationships, good physical health WEAKNESSES: Chronic marijuana use, chronic mental illness IMPRESSION: He is 45-year-old male admitted to the [facility] voluntarily with an unclear duration of increasing paranoia, irritability, insomnia, restlessness and anxiety. He is requesting to resume outpatient treatment and specifically mentioned treatment with a long-acting antipsychotic Abilify. He is markedly paranoid and suspicious but his thinking is organized, coherent and goal directed. He should be treated on an inpatient basis with combination of psychopharmacology and multimodal therapy. PRINCIPLE DIAGNOSIS: Bipolar disorder most recent episode manic with psychotic features, rule out schizoaffective disorder, rule out delusional disorder, rule out's cannabis induced psychotic disorder, cannabis use disorder, tobacco use RECOMMENDATION: Admitted to psychiatric unit. Safety precautions. Consult medicine for initial physical exam and medical history. tail board worker to complete initial psychosocial assessment and coordinate discharge and aftercare. Begin Abilify 5 mg daily and titrated clinical response and tolerance. If we are able to arrange for insurance coverage transition to Abilify Maintena. Haldol and/or Ativan for agitation or aggression. Encourage participation in therapeutic groups and activities. Evaluate clinical status response to treatment daily basis. Allergies Allergy/AdvReac Type Severity Reaction Status Date / Time bee venom protein (honey bee) AdvReac Itching Verified 11/29/20 16:34 Vital Signs Temp 98.5 F 11/30/20 01:40 Pulse 88 11/30/20 01:40 Resp 16 11/30/20 01:40 BP 156/115 11/30/20 01:40 Pulse Ox 97 11/29/20 16:21 Intake & Output 11/29/20 11/30/20 11/30/20 18:59 06:59 18:59 Weight 59.4 kg Laboratory Last Values WBC 9.1 k/uL (3.8-10.6) 11/30/20 08:12 RBC 5.03 m/uL (4.30-5.90) 11/30/20 08:12 Hgb 16.8 gm/dL (13.0-17.5) 11/30/20 08:12 Hct 51.6 % (39.0-53.0) 11/30/20 08:12 MCV 102.5 fL (80.0-100.0) H 11/30/20 08:12 MCH 33.4 pg (25.0-35.0) 11/30/20 08:12 MCHC 32.6 g/dL (31.0-37.0) 11/30/20 08:12 RDW 12.4 % (11.5-15.5) 11/30/20 08:12 Plt Count 225 k/uL (150-450) 11/30/20 08:12 MPV 8.1 11/30/20 08:12 Neutrophils % 61 % 11/30/20 08:12 Lymphocytes % 29 % 11/30/20 08:12 Monocytes % 7 % 11/30/20 08:12 Eosinophils % 1 % 11/30/20 08:12 Basophils % 0 % 11/30/20 08:12 Neutrophils # 5.6 k/uL (1.3-7.7) 11/30/20 08:12 Lymphocytes # 2.7 k/uL (1.0-4.8) 11/30/20 08:12 Monocytes # 0.6 k/uL (0-1.0) 11/30/20 08:12 Eosinophils # 0.1 k/uL (0-0.7) 11/30/20 08:12 Basophils # 0.0 k/uL (0-0.2) 11/30/20 08:12 Macrocytosis Slight 11/30/20 08:12 Sodium 137 mmol/L (137-145) 11/30/20 08:12 Potassium 4.2 mmol/L (3.5-5.1) 11/30/20 08:12 Chloride 104 mmol/L (98-107) 11/30/20 08:12 Carbon Dioxide 27 mmol/L (22-30) 11/30/20 08:12 Anion Gap 6 mmol/L 11/30/20 08:12 BUN 13 mg/dL (9-20) 11/30/20 08:12 Creatinine 0.98 mg/dL (0.66-1.25) 11/30/20 08:12 Est GFR (CKD-EPI)AfAm >90 (>60 ml/min/1.73 sqM) 11/30/20 08:12 Est GFR (CKD-EPI)NonAf >90 (>60 ml/min/1.73 sqM) 11/30/20 08:12 Glucose 148 mg/dL (74-99) H 11/30/20 08:12 Calcium 9.7 mg/dL (8.4-10.2) 11/30/20 08:12 Total Bilirubin 1.4 mg/dL (0.2-1.3) H 11/30/20 08:12 AST 29 U/L (17-59) 11/30/20 08:12 ALT 15 U/L (4-49) 11/30/20 08:12 Alkaline Phosphatase 63 U/L (38-126) 11/30/20 08:12 Total Protein 7.2 g/dL (6.3-8.2) 11/30/20 08:12 Albumin 4.5 g/dL (3.5-5.0) 11/30/20 08:12 Triglycerides 64 mg/dL (<150) 11/30/20 08:12 Cholesterol 147 mg/dL (<200) 11/30/20 08:12 LDL Cholesterol, Calc 76 mg/dL (0-99) 11/30/20 08:12 HDL Cholesterol 58 mg/dL (40-60) 11/30/20 08:12 Urine Color Light Brown 11/29/20 09:30 Urine Appearance Turbid (Clear) 11/29/20 09:30 Urine pH 5.5 (5.0-8.0) 11/29/20 09:30 Ur Specific [place] 1.030 (1.001-1.035) 11/29/20 09:30 Urine Protein Trace (Negative) H 11/29/20 09:30 Urine Glucose (UA) Negative (Negative) 11/29/20 09:30 Urine Ketones Trace (Negative) H 11/29/20 09:30 Urine Blood Negative (Negative) 11/29/20 09:30 Urine Nitrite Negative (Negative) 11/29/20 09:30 Urine Bilirubin Negative (Negative) 11/29/20 09:30 Urine Urobilinogen 3.0 mg/dL (<2.0) 11/29/20 09:30 Ur Leukocyte Esterase Negative (Negative) 11/29/20 09:30 Amorphous Sediment Occasional /hpf (None) H 11/29/20 09:30 Urine Bacteria Few /hpf (None) H 11/29/20 09:30 Urine Mucus Few /hpf (None) H 11/29/20 09:30 Urine Opiates Screen Not Detected (NotDetected) 11/29/20 09:53 Ur Oxycodone Screen Not Detected (NotDetected) 11/29/20 09:53 Urine Methadone Screen Not Detected (NotDetected) 11/29/20 09:53 Ur Propoxyphene Screen Not Detected (NotDetected) 11/29/20 09:53 Ur Barbiturates Screen Not Detected (NotDetected) 11/29/20 09:53 U Tricyclic Antidepress Not Detected (NotDetected) 11/29/20 09:53 Ur Phencyclidine Scrn Not Detected (NotDetected) 11/29/20 09:53 Ur Amphetamines Screen Not Detected (NotDetected) 11/29/20 09:53 U Methamphetamines Scrn Not Detected (NotDetected) 11/29/20 09:53 U Benzodiazepines Scrn Not Detected (NotDetected) 11/29/20 09:53 Urine Cocaine Screen Not Detected (NotDetected) 11/29/20 09:53 U Marijuana (THC) Screen Detected (NotDetected) H 11/29/20 09:53 Coronavirus (PCR) Not Detected (Not Detectd) 11/29/20 14:00 11/30/20 09:15 11/30/20 11:22
[2020-11-30 16:47] LABS: Hemoglobin A1C 5.6 % (4.0-6.0)
[2020-12-01] MEDS: ARIPiprazole 5 MG TAB PO SCH (08:26)
--- NOTE | 2020-12-01 11:50 | P.PN ---
Progress Note - Text Progress Note Date: 12/01/20 Clinical Problems: Bipolar disorder most recent episode manic with psychotic features, rule out schizoaffective disorder, rule out delusional disorder, rule out's cannabis induced psychotic disorder, cannabis use disorder, tobacco use Interim history: I reviewed the medical record, interviewed the patient and discuss his treatment and treatment plan during team meeting. He talked about not wanting to "mess up" his relationship with his girlfriend describing it as the "best thing that happened to me." He believes that compliance with the Abilify particularly Abilify injections to allow him to control his anger, restlessness and paranoia. He denied side effects to the initial dose Abilify and agreed to an increase. We talked about the process for transitioning to Abilify injections and the availability of a one-year subsidy. Mental status exam: He presented as a thin casually groomed 45-year-old male who was pleasant on approach. He made eye contact and attended to the interview. He had a blunted but bright facial expression. He was not restless or agitated. Her speech was spontaneous with normal rate and rhythm. His affect was controlled and appropriate. He denied suicidal ideation or wishes. Denies feelings of hopelessness, helplessness or worthlessness. He ruminated about the circumstances of parental hospital including difficulty sleeping, irritability and feeling as though people were "talking about me." He denied that he has experienced these problems since she's been on the unit. He clearly has history of ideas reference and paranoid ideation. He did not express clear paranoid delusional beliefs. His thinking was concrete but his associations were coherent, logical and goal directed. He denied hallucinations did not appear to responding to internal stimuli. Assessment: He is tolerating initial dose of Abilify. He has last paranoid and guarded than on admission. Plan: Continue inpatient treatment. Continue safety precautions. Increase Abilify to 10 mg daily. Begin Abilify Maintena once he is on a stable dose of oral. Continue Ativan and/or Haldol for agitation or aggression. Encourage continued participation in therapeutic groups and activities. Evaluate clinical status response to treatment daily basis.
[2020-12-01] MEDS: NICOTINE POLACRILEX 2 MG GUM BUCCAL PRN (11:59)
[2020-12-02] MEDS: ARIPiprazole 10 MG TAB PO SCH (08:20)
[2020-12-02] MEDS ORDERED: ARIPiprazole IM SYRINGE 400 MG (NO CHARGE) PHARMACY STOCK IM SCH ×2 (09:00)
--- NOTE | 2020-12-02 11:05 | P.PN ---
Progress Note - Text Progress Note Date: 12/02/20 Clinical Problems: Bipolar disorder most recent episode manic with psychotic features, rule out schizoaffective disorder, rule out delusional disorder, rule out's cannabis induced psychotic disorder, cannabis use disorder, tobacco use Interim history: I reviewed the medical record, interviewed the patient and discuss his treatment and treatment plan during team meeting. He denied side effects to the increased dose of Abilify and consented to begin Abilify Maintena. He denied that he has difficulty controlling his temper. He is had no episodes of behavioral dyscontrol. He is attending therapeutic groups and activities. Her therapist reported that his thinking is organized and he is appropriately engaged in activities and group. He is preoccupied about being discharged. I explained that we need to schedule aftercare and make final arrangements for him to have access to the Abilify voucher. Mental status exam: He presented as a thin casually groomed 45-year-old male who was pleasant on approach. He made eye contact and attended to the interview. He had a bright facial expression. He was not restless or agitated. Her speech was spontaneous with normal rate and rhythm. His affect was controlled and appropriate. He denied suicidal ideation or wishes. Denied feelings of hopelessness, helplessness or worthlessness. He did not express paranoid thoughts, ideation or belief. His thinking was concrete and his associations were coherent, logical and goal directed. He denied hallucinations did not appear to responding to internal stimuli. Assessment: He is showing initial response to Abilify with a decrease in irritability, restlessness and paranoia Plan: Continue inpatient treatment. Continue safety precautions. Continue Abilify to 10 mg daily. Begin Abilify Maintena 400 mg IM monthly. Continue Ativan and/or Haldol for agitation or aggression. Encourage continued participation in therapeutic groups and activities. Evaluate clinical status response to treatment daily basis.
[2020-12-03] MEDS: ARIPiprazole 10 MG TAB PO SCH (08:26)
--- NOTE | 2020-12-03 13:31 | P.PN ---
Progress Note - Text Progress Note Date: 12/03/20 Clinical Problems: Bipolar disorder most recent episode manic with psychotic features, rule out schizoaffective disorder, rule out delusional disorder, rule out's cannabis induced psychotic disorder, cannabis use disorder, tobacco use Interim history: I reviewed the medical record and interviewed the patient. He denied adverse effects to the initial injection of Abilify Maintena. He denied that he has difficulty controlling his temper. He is had no episodes of behavioral dyscontrol. He is attending therapeutic groups and activities. H remains preoccupied but discharge but is not unreasonable and understands that we will need to schedule a follow-up appointment with [facility] and arrange for him to receive a discount voucher for the Abilify injections. Mental status exam: He presented as a thin casually groomed 45-year-old male who was pleasant on approach. He made eye contact and attended to the interview. He had a bright facial expression. He was not restless or agitated. Her speech was spontaneous with normal rate and rhythm. His affect was controlled and appropriate. He denied suicidal ideation or wishes. Denied feelings of hopelessness, helplessness or worthlessness. He did not express paranoid thoughts, ideation or belief. His thinking was concrete and his associations were coherent, logical and goal directed. He denied hallucinations did not appear to responding to internal stimuli. Assessment: He is showing initial response to Abilify with a decrease in irritability, restlessness and paranoia Plan: Continue inpatient treatment. Continue safety precautions. Continue Abilify to 10 mg daily for 14 days. Begin Abilify Maintena 400 mg IM monthly. Continue Ativan and/or Haldol for agitation or aggression. Encourage continued participation in therapeutic groups and activities. Evaluate clinical status re sponse to treatment daily basis.
[2020-12-03] MEDS: NICOTINE POLACRILEX 2 MG GUM BUCCAL PRN (18:08)
[2020-12-04] MEDS: ARIPiprazole 10 MG TAB PO SCH (08:38)
--- NOTE | 2020-12-04 12:59 | P.PN ---
Progress Note - Text Progress Note Date: 12/04/20 Clinical Problems: Bipolar disorder most recent episode manic with psychotic features, rule out schizoaffective disorder, rule out delusional disorder, rule out's cannabis induced psychotic disorder, cannabis use disorder, tobacco use Interim history: I reviewed the medical record and interviewed the patient. He denied problems or concerns other than discharge. He is had no episodes of of behavioral dyscontrol. He is attending therapeutic groups and activities. He slept 7 hours last night. He understands to have learning discharge him until recently secure a voucher for the Abilify injections and schedule a follow-up appointment where he would receive the injections. Mental status exam: He presented as a thin casually groomed 45-year-old male who was pleasant on approach. He made eye contact and attended to the interview. He had a bright facial expression. He was not restless or agitated. Her speech was spontaneous with normal rate and rhythm. His affect was controlled and appropriate. He denied suicidal ideation or wishes. Denied feelings of hopelessness, helplessness or worthlessness. He did not express paranoid thoughts, ideation or belief. His thinking was concrete and his associations were coherent, logical and goal directed. He denied hallucinations did not appear to responding to internal stimuli. Assessment: He is much improved from admission and has no answers affects to his medications. Plan: Continue inpatient treatment. Continue safety precautions. Continue Abilify to 10 mg daily for 13 days. Continue Abilify Maintena 400 mg IM monthly. Continue Ativan and/or Haldol for agitation or aggression. Encourage continued participation in therapeutic groups and activities. Evaluate clinical status response to treatment daily basis.
[2020-12-04] MEDS: NICOTINE POLACRILEX 2 MG GUM BUCCAL PRN (18:32)
[2020-12-05 07:23] VITALS: BP 188/88; PULSE 69; TEMP 97.7
[2020-12-05] MEDS: ARIPiprazole 10 MG TAB PO SCH (08:17)
--- NOTE | 2020-12-05 11:21 | P.DS ---
Providers Date of admission: 11/29/20 15:14 Attending physician: Blanco Díaz MD Consults: 11/29/20 15:30 Consult Physician Routine Consulting Provider: [facility] Consult Reason/Comments: H&P and medical Do you want consulting provider notified?: Yes Primary care physician: Blanco Díaz MD - Discharge Diagnosis(es) (1) Bipolar disorder Current Visit: Yes Status: Chronic Priority: High (2) Cannabis use disorder, mild, abuse Current Visit: Yes Status: Chronic Priority: Medium (3) Tobacco use Current Visit: Yes Status: Chronic Priority: Low Hospital Course: HISTORY: His 45-year-old male admitted to psychiatric unit voluntarily with recent history of increasing paranoia, insomnia, irritability and restlessness. He was initially reluctant to speak with me insisting that I call his girlfriend and have her present on the telephone during the interview. He was apprehensive but eventually agreed to speak with me privately before he called his girlfriend. He requested to "get back on" Abilify injections. He stated that when he was receiving the injection he was doing well. He alleged that he stopped injections because his insurance would not cover the cost. He had a difficult time explaining the concerns that brought him to the hospital. Apparently, the hospitalization was at the behest of his father and his girlfriend. He talked about being suspicious of people, having restless sleep, feeling anxious and having a more difficult time controlling his anger. He perseverated considerably about his current job. He is worried that if she does not receive some treatment he may lose the job that is held for 2 years. He also is concerned that if he were hired full-time (he's been working for [employer] for the last 2 years) he would be required to provide a urine sample for another drug test and may fail because he continues to smoke marijuana. His girlfriend, Nida, was concerned about his restlessness, irritability and paranoia. She complained that that he has difficult time controlling his anger. He cannot sleep and paces the house. She talked about him leaving strangers are looking at him and talking about him. She perseverated on him needing "something for anxiety." During the telephone portion of interview he revealed that in the past he had taken and possibly abused Adderall. His history of use difficult to clarify but that appeared to attend when he was last admitted to this unit. (There is no record of controlled substance prescriptions on [facility]) He denied persistent feelings depression or thoughts of or suicide. He described feeling tense and nervous and apprehensive as a result his concern over work and his relationship with his girlfriend. He denied experiencing panic attacks. He denied obsessions or compulsions. He alleges that he has been abstinent from alcohol since 2010. He only smokes marijuana. His UDS was positive only for cannabinoids. His girlfriend described what appears to be ideas reference where he feels that others are looking at him and talking about him. He denied experiencing thought insertion, thought broadcasting or thought control. He did not describe a paranoid belief. HOSPITAL COURSE: We admitted him to the psychiatric unit under the care of this telegraphic typewriter installer. We provided a comprehensive biopsychosocial assessment. The telecommunications consultant pattern filer completed initial physical exam and medical history and did not diagnose major medical condition. We started Abilify and titrated dose of 10 mg daily. Once we confirm that he would be able to obtain Abilify Maintana we started 400 mg IM; he received his first dose on December 02. He posed no management problem and had no episodes appear dyscontrol. His paranoia decreased markedly with 10 mg of Abilify. His affect is and engaged in therapeutic groups and activities. MENTAL STATUS ON DISCHARGE: He presented as a thin 45-year-old male who was pleasant on approach. He made eye contact and attended to the interview. No distinction features are prominent physical abnormalities. He had a bright facial expression. He is alert and oriented to person, place and time. He had no abnormality of psychomotor activity. He had slow and steady gait. His speech was spontaneous normal rate, rhythm and volume. His affect was bright, stable and appropriate. He denied suicidal ideation, wishes or homicidal ideation. He denied feeling hopeless, helpless or worthless. He didn't express ideas reference, paranoid ideation or delusions. His thinking was abstract and associations were coherent, logical and goal directed. He denied hallucinations did not appear to responding to internal stimuli. DISPOSITION: Discharge home with follow-up through [facility]. Discharge medications included a 12 day supply of Abilify 10 mg and prescription for his first dose of Abilify Maintena 400 mg. His next injection is due on 12/30/2020. Patient Condition at Discharge: Stable Plan - Discharge Summary New Discharge Prescriptions: New ARIPiprazole [Abilify] 10 mg PO DAILY #12 tab ARIPiprazole IM SYRINGE [Abilify Maintena Syringe] 400 mg IM Q30D #1 syringe Nicotine Polacrilex [Nicorette] 2 mg BUCCAL Q2HR PRN gum PRN Reason: Nicotine Cravings Discharge Medication List ARIPiprazole IM SYRINGE [Abilify Maintena Syringe] 400 mg IM Q30D #1 syringe 12/05/20 [Rx] ARIPiprazole [Abilify] 10 mg PO DAILY #12 tab 12/05/20 [Rx] Nicotine Polacrilex [Nicorette] 2 mg BUCCAL Q2HR PRN gum 12/05/20 [Rx] Follow up Appointment(s)/Referral(s): [facility] [NON-STAFF] - 1 Week Patient Instructions/Handouts: How to Stop Smoking (DC), Bipolar Disorder (DC), Schizoaffective Disorder (DC) Activity/Diet/Wound Care/Special Instructions: Activity and diet as tolerated. Avoid the use of street drugs and alcohol. Take all medications as prescribed. When you are in need of refills on your medications please contact your medical provider and/or outpatient psychiatrist to have this done. Please go to scheduled outpatient appointment for aftercare treatment. If symptoms return or become worse, call the crisis line at and/or go to the nearest emergency room for evaluation. Discharge Disposition: HOME SELF-CARE
== END 2020-12-05 15:44 | disposition home or self-care (01) | DRG 885 ==
LOC: EC 09:10 → 3MHU 15:14
PROVIDERS: ADMIT Psychiatry & Neurology Psychiatry; ATTEND Psychiatry & Neurology Psychiatry
DX: F31.2 Bipolar disorder, current episode manic severe with psychotic features (principal); F41.9 Anxiety disorder, unspecified; G47.00 Insomnia, unspecified; F12.10 Cannabis abuse, uncomplicated; F17.210 Nicotine dependence, cigarettes, uncomplicated; F90.9 Attention-deficit hyperactivity disorder, unspecified type; R45.1 Restlessness and agitation; Z91.030 Bee allergy status; Z81.8 Family history of other mental and behavioral disorders; Z91.19 Patient's noncompliance with other medical treatment and regimen; Z20.828 Contact with and (suspected) exposure to other viral communicable diseases
CPT/HCPCS: 80053; 80061; 80306; 81001; 83036; 84443; 85025; 87635; 99285